=== PATIENT | female | born 1985 | race Hispanic/Latino ===

== ENCOUNTER 2019-07-16 00:34 | Inpatient (IN) | payer OTHER ==
[2019-07-16] MEDS ORDERED: BUTORPHANOL 1 MG/ML INJ IV PRN (09:24)
[2019-07-16] MEDS ORDERED: PROMETHAZINE 25 MG/ML VIAL IV PRN (09:24)
[2019-07-16] MEDS ORDERED: Ringers Lactate 1,000 ML IV PRN (09:24)
[2019-07-16 09:39] VITALS: BMI 34.3
[2019-07-16 09:48] LABS: Urine Appearance CLEAR; Urine Bilirubin NEGATIVE (NEG); Urine Blood NEGATIVE (NEG); Urine Color YELLOW; Urine Glucose NEGATIVE (NEG); Urine Protein NEGATIVE (NEG)
[2019-07-16 09:50] LABS: Urine Microscopic Reflex ORDER UMIC
[2019-07-16 09:52] LABS: Absolute Lymphocytes (CBC) 1.5 K/uL (0.7-4.9); Basophils % 0.3 % (0-1.3); Hematocrit 34.4 % (36.0-45.0); Lymphocytes % 24.9 % (15.3-44.8); MPV 8.6 fL (7.6-11.3); RBC Red Blood Cell Count 3.91 M/uL (3.86-4.86)
[2019-07-16 09:59] LABS: Urine Bacteria <20 /HPF (<20); Urine Culture Reflex Order NOT NEEDED; Urine RBC NONE SEEN /HPF (NONE SEEN)
[2019-07-16] MEDS ORDERED: Ringers Lactate 1,000 ML IV SCH (10:00)
[2019-07-16] MEDS ORDERED: OXYTOCIN/LR 20 UNIT/1,000 ML BAG IV SCH ×2 (10:00→15:00)
--- NOTE | 2019-07-16 11:28 | P.PN ---
Date of Service: 07/16/19 AROM, clear fluid, cx 3cm, 80% effaced, vtx minus 1 station.
[2019-07-16] MEDS ORDERED: LIDOCAINE 1% MPF 30 ML VIAL ONE (12:06)
[2019-07-16] MEDS ORDERED: METHYLERGONOVINE 0.2MG/ML AMP IM ONE (12:07)
[2019-07-16] MEDS ORDERED: CARBOPROST TROME 250 MCG/ML IM ONE (12:07)
[2019-07-16] MEDS ORDERED: METHYLERGONOVINE 0.2MG/ML AMP IM PRN (14:47)
[2019-07-16] MEDS ORDERED: ACETAMINOPHEN 500 MG TAB PO PRN (14:47)
[2019-07-16] MEDS ORDERED: METHYLERGONOVINE 0.2 MG TAB PO PRN (14:47)
[2019-07-16] MEDS ORDERED: CARBOPROST TROME 250 MCG/ML IM PRN (14:47)
[2019-07-16] MEDS ORDERED: IBUPROFEN 200 MG TAB PO PRN (14:47)
[2019-07-16 21:01] LABS: RPR (Rapid Plasma Reagin) NON-REACT (NON-REACT)
[2019-07-17 12:38] VITALS: BP 132/75; TEMP 97.6
--- NOTE | 2019-07-18 10:35 | DS ---
Date of Discharge: 07/17/2019 Final Hospital Discharge Diagnosis: 39+ week , delivered. Complications: None. Procedures: Artificial rupture of membranes, Pitocin augment, and induction of labor, spontaneous co ntrolled vaginal delivery of viable male . Hospital Course: Patient is a 33-year-old female, 3, para 2-0-0-2, who was admitted for induction, delivered a 7 pound 11 ounce male , 9 9. She was dismissed on the first day, ambulatory, on a select diet with routine postvaginal delivery activity restrictions, to be seen back in my office in 1 week and to continue taking her iron and vitamins. Lab work inclu ded admission hemoglobin and hematocrit of 12.2 and 34.4, dismissal hematocrit of 34.3. She is Rh po sitive blood type. Rubella immune. CHANDRAKANT/VIDHYA Voice ID: [id number] Report ID: [id number]
--- NOTE | 2019-07-18 10:35 | DN ---
Surgeon: Narayan Holden MD Mrs. Mills is 33-year-old female, 3, para 2-0-0-2 at 39+ weeks gestation, admitted for induction of labor. She had a first stage of labor 2 hours and 36 minutes, second stage of labor 34 minutes. She delivered via spontaneous controlled vaginal delivery, 7 pounds 11 ounce male infan t, 9 and 9. Cord clamping was delayed for approximately 1+ minutes and milking of the cord tow ards the performed. The cord was then clamped, cut, and the infant placed on mother's upper a bdomen. Cord blood was obtained. The placenta was spontaneously expelled and appeared to be intact. Intrauterine examination revealed no retained placental fragments. The patient received [address]ol, 12.5 mg of Phenergan IV for analgesia x1. She had no lacerations or tears. Estimated total bl ood loss was less than 300 cc. CHANDRAKANT/VIDHYA Voice ID: [id number] Report ID: [id number]
[2019-07-19 02:23] LABS: HBsAG Nonreactive (Nonreactive)
== END 2019-07-17 16:05 | disposition home or self-care (01) | DRG 807 ==
LOC: 2ND-WC 08:27
PROVIDERS: ADMIT Specialist; ATTEND Specialist
PROC: 10E0XZZ Delivery of Products of Conception, External Approach (ICD-10-PCS; principal; 2019-07-16)
PROC: 10907ZC Drainage of Amniotic Fluid, Therapeutic from Products of Conception, Via Natural or Artificial Opening (ICD-10-PCS; 2019-07-16)
PROC: 3E033VJ Introduction of Other Hormone into Peripheral Vein, Percutaneous Approach (ICD-10-PCS; 2019-07-16)
DX: O80 Encounter for full-term uncomplicated delivery (principal); Z37.0 Single live birth; Z3A.39 39 weeks gestation of pregnancy
CPT/HCPCS: 36415; 81003; 81015; 85014; 85025; 86592; 86901; 87340; J0595; J2210; J2550; J2590; J7120

== ENCOUNTER 2023-06-06 09:33 | Emergency (ER) | payer OTHER, SELFPAY ==
--- OUTSIDE RECORDS SUMMARY | 2023-06-06 09:36 | XMS REPORT | Continuity of Care Document ---
:1985 Author Organization [facility] t Address [address] [place] [id number] Care Team Providers Name Role Phone Unavailable Unavailable Unavailable Problems This patient has no known problems. Allergies, Adverse Reactions, Alerts This patient has no known allergies or adverse reactions. Medications This patient has no known medications. Procedures This patient has no known procedures. Results This patient has no known results.
[2023-06-06] MEDS ORDERED: LIDOCAINE 1% MPF 5 ML VIAL ONE (09:56)
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
[2023-06-06 10:46] VITALS: BP 154/109; O2SAT 100
[2023-06-06] MEDS ORDERED: HYDROCODONE/APAP 10/325 TAB ONE (10:47)
== END 2023-06-06 10:42 | disposition home or self-care (01) ==
LOC: ER 09:33
DX: S01.511A Laceration without foreign body of lip, initial encounter (principal); M26.3 Anomalies of tooth position of fully erupted tooth or teeth
CPT/HCPCS: 99284; J2001

== ENCOUNTER 2024-05-04 11:26 | Emergency (ER) | payer SELFPAY ==
--- OUTSIDE RECORDS SUMMARY | 2024-05-04 11:40 | XMS REPORT | Continuity of Care Document ---
Author Name Unknown Address [address] [place] [address] [employer] Address [address] [place] [address] Care Team Providers Care Slot Manager Name Role Phone Unavailable Unavailable Unavailable
[2024-05-04] MEDS ORDERED: KETOROLAC 30 MG/ML INJ ONE (14:12)
[2024-05-04] MEDS ORDERED: ONDANSETRON 4 MG/2 ML VIAL ONE (14:12)
[2024-05-04] MEDS ORDERED: MORPHINE 4 MG/ML SYR ONE (14:12)
[2024-05-04] MEDS ORDERED: DIAZEPAM 5 MG TABLET ONE (14:13)
[2024-05-04] MEDS ORDERED: NA CHLORIDE 0.9% 1,000 ML ONE (14:13)
[2024-05-04 14:52] LABS: Absolute Eosinophils 0.1 K/uL (0-0.5); Absolute Lymphocytes (CBC) 1.2 K/uL (0.7-4.9); Absolute Monocytes 0.2 K/uL (0.1-1.3); Absolute Neutrophil 5.5 K/uL (1.8-8.0); Basophils % 0.4 % (0-1.3); Eosinophils % 1.2 % (0-4.4); Hematocrit 40.6 % (36.0-45.0); Hemoglobin 13.6 g/dL (12.0-15.0); MCH 29.8 pg (27.0-35.0); MCHC 33.6 g/dL (32.0-36.0); MCV 88.7 fL (80-100); MPV 7.6 fL (7.6-11.3); Monocytes % 3.2 % (3.3-12.3); Neutrophils % 78.2 % (41.7-73.7); Platelets 153 thou/uL (152-406); RBC Red Blood Cell Count 4.58 M/uL (3.86-4.86); Red Cell Distribution Width 13.3 % (12.1-15.2); Specific Gravity < 1.005 (1.005-1.030)
[2024-05-04 14:53] LABS: Specific Gravity < 1.005 (1.005-1.030); Sqamous Epithelial <5 /HPF (None Seen); Urine Bacteria <20 /HPF (<20); Urine Bilirubin NEGATIVE (Negative); Urine Blood Negative (Negative); Urine Clarity Turbid (Clear); Urine Color Colorless (Yellow); Urine Crystals Unidentified Few /HPF (None Seen); Urine Culture Reflex Order NOT NEEDED; Urine Glucose NEGATIVE (Negative); Urine Ketones NEGATIVE (Negative); Urine Microscopic Reflex YN ORDER UMIC; Urine Mucus Slight /HPF (None Seen); Urine Nitrite NEGATIVE (Negative); Urine Protein NEGATIVE (Negative); Urine RBC <5 /HPF (None Seen); Urine Urobilinogen Normal (Normal); Urine WBC <5 /HPF (<5)
--- NOTE | 2024-05-04 14:57 | RAD REPORT ---
EXAM DESCRIPTION: RAD - Femur Right - 05/04/2024 2:45 pm CLINICAL HISTORY: Leg pain FINDINGS: No fracture is seen. No bony lesions seen If the patient's symptoms persist then follow-up x-ray in 4 weeks would berecommended
[2024-05-04 15:18] LABS: Albumin 4.1 g/dL (3.4-5.0); Albumin/Globulin Ratio 1.1 (1.1-1.8); Anion Gap 8.3 mEq/L (5.0-15.0); Bilirubin Total 0.7 mg/dL (0.2-1.0); Globulin 3.9 g/dL (2.3-3.5); Potassium 3.3 mEq/L (3.5-5.1)
--- NOTE | 2024-05-04 16:26 | RAD REPORT ---
EXAM DESCRIPTION: USExtremity Venous Uni Ltd05/04/2024 2:58 pm CLINICAL HISTORY: Right leg pain COMPARISON: None. FINDINGS: Right common femoral, superficial femoral, greater saphenous, popliteal and right posterio r tibial veins are compressible and demonstrate augmentation. Doppler demonstrates good flow. Grayscale, color and spectral analysis performed on all vessels IMPRESSION: No evidence of deep venous thrombosis involving the right lower extremity.
--- NOTE | 2024-05-04 16:27 | RAD REPORT ---
EXAM DESCRIPTION: US - Lower Extremity Artery Uni Ltd - 05/04/2024 2:58 pm CLINICAL HISTORY: Leg pain COMPARISON: None FINDINGS: The right common femoral, superficial femoral and popliteal arteries demonstrate triphasic waveforms The right posterior tibial and dorsalis pedis arteries demonstrate biphasic waveforms No high-grade stenosis/occlusion Grayscale, color and spectral analysis performed on all vessels IMPRESSION: Mild distal lower extremity arterial disease
--- NOTE | 2024-05-04 16:49 | RAD REPORT ---
EXAM DESCRIPTION: US - Transvaginal OB - 05/04/2024 4:12 pm CLINICAL HISTORY: with vaginal bleeding and pain COMPARISON: None. FINDINGS: The uterus measures 9 x 5 x 7 centimeters. The endometrial stripe measures 25 millimeters. A gestational sac is not seen. Ovaries are normal in size and echotexture.. The right and left adnexa unremarkable No significant free fluid IMPRESSION: Nonvisualization of a gestational sac within the endometrium. These findings could represent an early intrauterine in which the gestational sac is not se en. and even an ectopic can also result in this appearance. This all should be cor related clinically and with serial beta HCG levels. Followup endovaginal sonogram in 1 week recommend ed
--- NOTE | 2024-05-04 17:38 | EDPHYS ---
Physician Documentation [facility] Name: Ainsley Fleming Age: 38 yrs Sex: Female : 1985 Arrival Date: 05/04/2024 Time: 11:26 Bed 16 Private MD: ED Physician Rio Tate HPI: 05/04 17:33 This 38 yrs old Female presents to ER via Ambulatory with complaints of Leg kapil Pain. 17:33 The patient presents with decreased range of motion, pain, that is acute. The kapil complaints affect the lateral aspect of right thigh. Context: resulted from an unknown cause. Onset: The symptoms/episode began/occurred 1 day(s) ago. Modifying factors: The symptoms are alleviated by nothing. remaining still, the symptoms are aggravated by movement. Associated signs and symptoms: Pertinent positives: weakness. Treatment prior to arrival includes: no previous treatment. Severity of symptoms: At their worst the symptoms were moderate, in the emergency department the symptoms are unchanged. The patient has not experienced similar symptoms in the past. Historical: - Allergies: 12:01 No Known Allergies; cm10 - Home Meds: 12:01 None [Active]; cm10 - PMHx: 12:01 None; cm10 - PSHx: 12:01 None; cm10 - Immunization history:: Adult Immunizations up to date. - Infectious Disease History:: Denies. - Social history:: Smoking status: Patient denies any tobacco usage or history of. ROS: 17:35 Constitutional: Negative for fever, chills, and weight loss, Eyes: Negative for injury, kapil pain, redness, and discharge, ENT: Negative for injury, pain, and discharge, Neck: Negative for injury, pain, and swelling, Cardiovascular: Negative for chest pain, palpitations, and edema, Respiratory: Negative for shortness of breath, cough, wheezing, and pleuritic chest pain, Abdomen/GI: Negative for abdominal pain, nausea, vomiting, diarrhea, and constipation, Back: Negative for injury and pain, : Negative for injury, bleeding, discharge, and swelling, Skin: Negative for injury, rash, and discoloration, Neuro: Negative for headache, weakness, numbness, tingling, and seizure, Psych: Negative for depression, anxiety, suicide ideation, homicidal ideation, and hallucinations, Allergy/Immunology: Negative for hives, rash, and allergies, Endocrine: Negative for neck swelling, polydipsia, polyuria, polyphagia, and marked weight changes, Hematologic/Lymphatic: Negative for swollen nodes, abnormal bleeding, and unusual bruising, 17:35 MS/extremity: Positive for pain, tenderness, of the lateral aspect of right thigh, Exam: 17:35 Constitutional: This is a well developed, well nourished patient who is awake, alert, kapil and in no acute distress. Head/Face: Normocephalic, atraumatic. Eyes: Pupils equal round and reactive to light, extra-ocular motions intact. Lids and lashes normal. Conjunctiva and sclera are non-icteric and not injected. Cornea within normal limits. Periorbital areas with no swelling, redness, or edema. ENT: Nares patent. No nasal discharge, no septal abnormalities noted. Tympanic membranes are normal and external auditory canals are clear. Oropharynx with no redness, swelling, or masses, exudates, or evidence of obstruction, uvula midline. Mucous membranes moist. Neck: Trachea midline, no thyromegaly or masses palpated, and no cervical lymphadenopathy. Supple, full range of motion without nuchal rigidity, or vertebral point tenderness. No Meningismus. Chest/axilla: Normal chest wall appearance and motion. Nontender with no deformity. No lesions are appreciated. Cardiovascular: Regular rate and rhythm with a normal S1 and S2. No gallops, murmurs, or rubs. Normal PMI, no JVD. No pulse deficits. Respiratory: Lungs have equal breath sounds bilaterally, clear to auscultation and percussion. No rales, rhonchi or wheezes noted. No increased work of breathing, no retractions or nasal flaring. Abdomen/GI: Soft, non-tender, with normal bowel sounds. No distension or tympany. No guarding or rebound. No evidence of tenderness throughout. Back: No spinal tenderness. No costovertebral tenderness. Full range of motion. Skin: Warm, dry with normal turgor. Normal color with no rashes, no lesions, and no evidence of cellulitis. Neuro: Awake and alert, GCS 15, oriented to person, place, time, and situation. Cranial nerves II-XII grossly intact. Motor strength 5/5 in all extremities. Sensory grossly intact. Cerebellar exam normal. Normal gait. Psych: Awake, alert, with orientation to person, place and time. Behavior, mood, and affect are within normal limits. 17:35 Musculoskeletal/extremity: Extremities: grossly normal except: noted in the lateral aspect of right thigh: decreased ROM, pain, ROM: limited active range of motion due to pain, limited passive range of motion due to pain, in the right leg, Circulation is intact in all extremities. Sensation intact. Compartment Syndrome exam of affected extremity: is normal. Joints: All joints appear normal with full range of motion. Weight bearing: able to fully bear weight, Tendon exam: specific tendon testing normal through active and passive range of motion DVT Exam: no swelling, negative Homans' sign noted on exam, no appreciated bluish discoloration, no erythema, no increased warmth, pain, tenderness, 17:35 Neuro: Orientation: is normal, appropriate for stated age, no acute changes, Mentation: is normal, appropriate for stated age, no acute changes, Memory: is normal, appropriate for stated age, no acute changes, Cranial nerves: grossly normal, is grossly normal based on the patient's age, no acute changes, Cerebellar function: is grossly normal, is grossly normal based on the patient's age, no acute changes, Motor: moves all fours, Gait: not tested. seizure activity, is not displayed by the patient, 17:49 ECG was reviewed by the Attending Physician. [facility] Vital Signs: 11:59 BP 176 / 98; Pulse 71; Resp 16; Temp 96.9(TE); Pulse Ox 100% on R/A; Weight 86.18 kg; cm10 Height 5 ft. 4 in. ; Pain 9/10; 15:05 BP 134 / 81; Pulse 73; Resp 16; Pulse Ox 100% ; bp 16:30 BP 128 / 78; Pulse 71; Resp 16; Pulse Ox 99% on R/A; hb 11:59 Body Mass Index 32.61 (86.18 kg, 162.56 cm) cm10 11:59 Pain Scale: Adult cm10 MDM: 11:49 Patient medically screened. [facility] 17:38 Differential diagnosis: closed fracture, contusion, tendonitis. Data reviewed: vital [facility] signs, nurses notes, lab test result(s), EKG, radiologic studies, doppler, plain films, ultrasound. Consideration of Admission/Observation Escalation of care including admission/observation considered. I considered the following discharge prescriptions or medication management in the emergency department Medications were administered in the Emergency Department. See MAR. Independent interpretation of the following test(s) in the Emergency Department EKG: See my EKG interpretation above. Test considered but Not performed: CT: NO CT ANGIO. Historians other than the Patient: Spouse/Significant Other: WELL INFORMED. PT WELL INFORMED. Care significantly affected by the following chronic conditions: NONE. 05/04 14:03 Order name: CBC with Diff; Complete Time: 15:37 [facility] 05/04 14:03 Order name: Comprehensive Metabolic Panel; Complete Time: 17:32 [facility] 05/04 14:03 Order name: Urinalysis w/ reflexes; Complete Time: 15:37 [facility] 05/04 14:03 Order name: PREGU; Complete Time: 15:37 [facility] 05/04 14:03 Order name: CPK; Complete Time: 17:32 [facility] 05/04 15:38 Order name: Quantitative Hcg; Complete Time: 17:32 [facility] 05/04 14:03 Order name: Femur Right XRAY; Complete Time: 15:37 [facility] 05/04 14:03 Order name: US LE Artery Uni Ltd; Complete Time: 16:33 [facility] 05/04 14:03 Order name: US Extremity Venous Unilateral Ltd; Complete Time: 16:33 [facility] 05/04 15:38 Order name: US Transvaginal Ob; Complete Time: 17:08 [facility] 05/04 17:37 Order name: EKG; Complete Time: 17:38 [facility] 05/04 17:37 Order name: EKG - Nurse/Tech; Complete Time: 17:57 [facility] 05/04 17:38 Order name: Crutches; Complete Time: 17:57 [facility] EC:49 Rate is 57 beats/min. Rhythm is regular. QRS [place] is Normal. MI interval is normal. QRS kapil interval is normal. QT interval is normal. No Q waves. T waves are Normal. No ST changes noted. Clinical impression: Sinus bradycardia and No evidence of ischemia. Interpreted by me. Reviewed by me. Administered Medications: 14:34 Drug: NS 0.9% IV 1000 ml IV at 1 bolus Per protocol; 1000 mL bolus Route: IV; Rate: 1 bp bolus; Site: left antecubital; 14:34 Drug: Ketorolac IVP 30 mg IVP once Route: IVP; Site: left antecubital; bp 14:34 Drug: morphine IVP or IV 4 mg IVP once over 4 mins Route: IVP; Infused Over: 4 mins; bp Site: left antecubital; 14:34 Drug: Ondansetron IVP 4 mg IVP once; over 2 minutes Route: IVP; Site: left antecubital; bp 14:34 Drug: Diazepam PO 10 mg PO once Route: PO; bp 18:11 Drug: Potassium PO Effervescent Tablet 25 mEq PO once; dissolve in 4 ounces of water or hb juice Route: PO; 18:11 Drug: Aspirin PO Chewable Tablet 81 mg PO once Route: PO; hb Disposition Summary: 05/04/24 17:38 Discharge Ordered Notes: Location: Home kapil Problem: new kapil Symptoms: have improved kapil Condition: Fair kapil Diagnosis - Pain in right leg kapil - Peripheral vascular disease, unspecified kapil Followup: kapil - With: Private Physician - When: 2 - 3 days - Reason: Recheck today's complaints, Continuance of care, Re-evaluation by your physician Followup: kapil - With: Canelo Tapia MD - When: 2 - 3 days - Reason: Recheck today's complaints, Re-evaluation by your physician Discharge Instructions: - Discharge Summary Sheet kapil - Intermittent Claudication kapil - Peripheral Vascular Disease kapil - Peripheral Vascular Disease, [id number] kapil - Aspirin and Your Heart kapli Forms: - Medication Reconciliation Form kapil - Antibiotic Education kapil - Prescription Opioid Use kapil - Patient Portal Instructions kapil - Leadership Thank You Letter [facility] Prescriptions: - acetaminophen-codeine 300-30 mg Oral tablet - take 2 tablet ORAL route every 6 hours; 20 tablet; Refills: 0, Product kapil Selection Permitted Signatures: Dispatcher [employer] EDRio Mayes MD MD cha Baxter, Heather, RN RN Tray Pham, RN RN Denice Lopez RN RN cm10 Corrections: (The following items were deleted from the chart) 14:03 14:03 CBC+H.LAB.BRZ ordered. EDMS EDMS 14:03 14:03 COMPREHENSIVE METABOLIC PANEL+C.LAB.BRZ ordered. EDMS EDMS 14:03 14:03 Urinalysis+U.LAB.BRZ ordered. EDMS EDMS 14:03 14:03 Test, Urine+UC.LAB.BRZ ordered. EDMS EDMS 14:03 14:03 CREATINE PHOSPHOKINASE+C.LAB.BRZ ordered. EDMS EDMS 14:03 14:03 Femur Right+RAD.RAD.BRZ ordered. EDMS EDMS 14:03 14:03 Lower Extremity Artery Uni Ltd+US.RAD.BRZ ordered. EDMS EDMS 14:03 14:03 Extremity Venous Uni Ltd+US.RAD.BRZ ordered. EDMS EDMS
--- NOTE | 2024-05-04 17:38 | ER ---
Nurse's Notes [facility] Name: Ainsley Fleming Age: 38 yrs Sex: Female : 1985 Arrival Date: 05/04/2024 Time: 11:26 Bed 16 Private MD: Diagnosis: Pain in right leg;Peripheral vascular disease, unspecified Presentation: 05/04 11:59 Chief complaint: Patient states: Right upper leg pain onset 4 days ago. Pt states that cm10 the pain is intermittent and describes thee pain as sharp. Pt states that the pain is worse when she stands and her leg goes numb. Coronavirus screen: Client denies travel out of the [place] in the last 14 days. At this time, the client does not indicate any symptoms associated with coronavirus-19. Ebola Screen: Patient denies travel to an Ebola-affected area in the 21 days before illness onset. No symptoms or risks identified at this time. Initial Sepsis Screen: Does the patient meet any 2 criteria? No. Patient's initial sepsis screen is negative. Does the patient have a suspected source of infection? No. Patient's initial sepsis screen is negative. Risk Assessment: Do you want to hurt yourself or someone else? Patient reports no desire to harm self or others. Onset of symptoms was May 04, 2024. 11:59 Method Of Arrival: Ambulatory 10 11:59 Acuity: WILL 3 cm10 Triage Assessment: 12:01 General: Appears in no apparent distress. uncomfortable, Behavior is calm, cooperative. cm10 Pain: Complains of pain in right leg Pain does not radiate. Pain currently is 9 out of 10 on a pain scale. Quality of pain is described as sharp, Pain began 4 days ago Is intermittent. Neuro: No deficits noted. Level of Consciousness is awake, alert, obeys commands, Oriented to person, place, time, situation, Appropriate for age. Respiratory: No deficits noted. Airway is patent Respiratory effort is even, unlabored, Respiratory pattern is regular, symmetrical. Historical: - Allergies: 12:01 No Known Allergies; cm10 - Home Meds: 12:01 None [Active]; cm10 - PMHx: 12:01 None; cm10 - PSHx: 12:01 None; cm10 - Immunization history:: Adult Immunizations up to date. - Infectious Disease History:: Denies. - Social history:: Smoking status: Patient denies any tobacco usage or history of. Screenin:06 [facility] ED Fall Risk Assessment (Adult) History of falling in the last 3 months, bp including since admission No falls in past 3 months (0 pts) Confusion or Disorientation No (0 pts) Intoxicated or Sedated No (0 pts) Impaired Gait No (0 pts) Mobility Assist Device Used No (0 pt) Altered Elimination No (0 pt) Score/Fall Risk Level 0 - 2 = Low Risk. Abuse screen: Denies threats or abuse. Denies injuries from another. Nutritional screening: No deficits noted. Tuberculosis screening: No symptoms or risk factors identified. Assessment: 12:00 General: Appears in no apparent distress. uncomfortable, Behavior is cooperative, bp appropriate for age, anxious. Pain: Complains of pain in right leg. 15:06 Reassessment: Patient appears in no apparent distress at this time. Patient is alert, bp oriented x 3, equal unlabored respirations, skin warm/dry/pink. Vital Signs: 11:59 BP 176 / 98; Pulse 71; Resp 16; Temp 96.9(TE); Pulse Ox 100% on R/A; Weight 86.18 kg; cm10 Height 5 ft. 4 in. ; Pain 9/10; 15:05 BP 134 / 81; Pulse 73; Resp 16; Pulse Ox 100% ; bp 16:30 BP 128 / 78; Pulse 71; Resp 16; Pulse Ox 99% on R/A; hb 11:59 Body Mass Index 32.61 (86.18 kg, 162.56 cm) cm10 11:59 Pain Scale: Adult cm10 ED Course: 11:28 Patient arrived in ED. ra3 11:49 Rio Tate MD is Attending Physician. kapil 12:01 Triage completed. cm10 12:02 Arm band placed on Patient placed in waiting room. cm10 13:10 Tray Pham, LANI is Primary Nurse. bp 14:34 Initial lab(s) drawn, by me, sent to lab. Urine collected: clean catch specimen, clear. bp Inserted saline lock: 20 gauge in left antecubital area, using aseptic technique. Blood collected. Flushed with 10 mL NS. 14:47 Femur Right XRAY In Process Unspecified. EDMS 15:00 LE Artery Uni Ltd In Process Unspecified. EDMS 15:00 US Extremity Venous Unilateral Ltd In Process Unspecified. EDMS 15:06 Patient has correct armband on for positive identification. bp 16:14 US Transvaginal Ob In Process Unspecified. EDMS 17:37 Canelo Tapia MD is Referral Physician. kapil 18:12 No provider procedures requiring assistance completed. IV discontinued, intact, hb bleeding controlled, No redness/swelling at site. Pressure dressing applied. 18:13 Provided Education on: follow up. hb Administered Medications: 14:34 Drug: NS 0.9% IV 1000 ml IV at 1 bolus Per protocol; 1000 mL bolus Route: IV; Rate: 1 bp bolus; Site: left antecubital; 14:34 Drug: Ketorolac IVP 30 mg IVP once Route: IVP; Site: left antecubital; bp 14:34 Drug: morphine IVP or IV 4 mg IVP once over 4 mins Route: IVP; Infused Over: 4 mins; bp Site: left antecubital; 14:34 Drug: Ondansetron IVP 4 mg IVP once; over 2 minutes Route: IVP; Site: left antecubital; bp 14:34 Drug: Diazepam PO 10 mg PO once Route: PO; bp 18:11 Drug: Potassium PO Effervescent Tablet 25 mEq PO once; dissolve in 4 ounces of water or hb juice Route: PO; 18:11 Drug: Aspirin PO Chewable Tablet 81 mg PO once Route: PO; hb Medication: 18:13 VIS not applicable for this client. hb Outcome: 17:38 Discharge ordered by . kapil 18:11 Discharged to home via wheelchair, with crutches, with significant other, hb 18:11 Condition: stable 18:11 Discharge instructions given to patient, significant other, Instructed on discharge instructions, follow up and referral plans. medication usage, crutch walking, Demonstrated understanding of instructions, follow-up care, medications, crutch walking, Prescriptions given X 1, 18:13 Patient left the ED. hb Signatures: Dispatcher [employer] Rio Hendrickson MD MD cha Baxter, Heather, RN RN Tray Palmer RN RN bp Martinez, Clarissa, RN RN Magdalena Rodríguez 3
[2024-05-04] MEDS ORDERED: ASPIRIN 81 MG CHEWABLE TABLET ONE (17:56)
[2024-05-04] MEDS ORDERED: POTASSIUM CL SA 10 MEQ TAB PO ONE (17:57)
[2024-05-04 18:16] VITALS: TEMP 96.9
[2024-05-04 18:18] VITALS: BP 128/78; O2SAT 99
--- NOTE | 2024-05-06 13:50 | EKG ---
Test Date: 2024-05-04 Test Time: 17:46:08 Fabrication Specialist: HB MEASUREMENT RESULTS: Intervals: Rate: 57 DE: 148 QRSD: 84 QT: 450 QTc: 438 [place]: P: 44 DE: 148 QRS: 17 T: 12 INTERPRETIVE STATEMENTS: Sinus bradycardia Nonspecific T wave abnormality Abnormal ECG No previous ECG available for comparison Electronically Signed On 05-06-24 13:45:28 CDT by Canelo Tapia
== END 2024-05-04 18:13 | disposition home or self-care (01) ==
LOC: ER 11:26
DX: I73.9 Peripheral vascular disease, unspecified (principal)
CPT/HCPCS: 36415; 76817; 80053; 81001; 81025; 82550; 84702; 85025; 93005; 93926; 93971; 96374; 96375; 99284; J2405; J7030